=== PATIENT | female | born 2000 | race Caucasian/White ===

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

== ENCOUNTER 2020-11-21 21:09 | Emergency (ER) | payer SELFPAY ==
[2020-11-21 21:20] VITALS: TEMP 98.5; BMI 25.1
[2020-11-21 21:51] LABS: EPI CELLS >36 /uL (0-25.1); HYALINE CASTS 8 /uL (0-3.1); PH,URINE 5.5 (5.0-8.0); URINE APPEARANCE CLOUDY; URINE BACTERIA 1395 /uL (0-1359); URINE BILIRUBIN NEGATIVE (NEGATIVE); URINE COLOR YELLOW; URINE GLUCOSE (UA) NEGATIVE (NEGATIVE); URINE KETONE NEGATIVE (NEGATIVE); URINE LEUK ESTERASE 2+ (NEGATIVE); URINE NITRITE NEGATIVE (NEGATIVE); URINE PROTEIN TRACE (NEGATIVE); URINE RBC 26 /uL (0-23.9); URINE WBC 429 /uL (0-25.8)
[2020-11-21] MEDS ORDERED: ACETAMINOPHEN 500 MG TABLET (FP) PO ONE (22:03)
[2020-11-21] MEDS ORDERED: ACETAMINOPHEN 500 MG TABLET (FP) ONE (22:12)
[2020-11-21 22:27] LABS: BASO % 0.6 % (0-2.0); EOS % 3.1 % (0-4.5); HEMATOCRIT 27.4 % (32.4-45.2); HEMOGLOBIN 8.4 GM/dL (10.7-15.3); LYMPH % 17.8 % (8-40); MCH 20.4 pg (25.7-33.7); MCHC 30.6 g/dl (32.0-36.0); MEAN CELL VOLUME 66.6 fl (80-96); MEAN PLT VOLUME 7.7 fl (7.5-11.1); MONO % 7.9 % (3.8-10.2); NEUT % 70.6 % (42.8-82.8); PLATELET COUNT 340 K/MM3 (134-434); RBC 4.11 M/mm3 (3.60-5.2); RDW 18.6 % (11.6-15.6); WHITE BLOOD COUNT 12.4 K/mm3 (4.0-10.0)
[2020-11-21 22:54] LABS: CALCIUM 9.1 mg/dL (8.5-10.1)
[2020-11-21 22:55] LABS: BLOOD UREA NITROGEN 13.1 mg/dL (7-18)
[2020-11-21 22:59] LABS: CREATININE 0.8 mg/dL (0.55-1.3)
[2020-11-21 23:09] LABS: ANISOCYTOSIS 3+; MACROCYTOSIS 0; PLATELET ESTIMATE NORMAL
[2020-11-21 23:14] VITALS: BP 117/71; PULSE 80
== END 2020-11-21 23:15 | disposition home or self-care (01) ==
LOC: JERFT 21:09 → JER 21:09 → JERFT 23:15
DX: O26.851 Spotting complicating pregnancy, first trimester (principal); O23.41 Unspecified infection of urinary tract in pregnancy, first trimester; Z3A.08 8 weeks gestation of pregnancy
CPT/HCPCS: 36415; 76801-TC; 80048; 81003; 84702; 85025; 86850; 86900; 86901; 87086; 99285-25

== ENCOUNTER 2021-07-08 16:45 | Inpatient (IN) | payer MEDICARE, OTHER ==
[2021-07-08 17:56] VITALS: BMI 34.1
[2021-07-08 19:19] LABS: BASO % 0.3 % (0-2.0); EOS % 1.1 % (0-4.5); HEMATOCRIT 39.5 % (32.4-45.2); HEMOGLOBIN 13.5 GM/dL (10.7-15.3); LYMPH % 14.5 % (8-40); MCH 31.9 pg (25.7-33.7); MCHC 34.3 g/dl (32.0-36.0); MEAN CELL VOLUME 93.1 fl (80-96); MEAN PLT VOLUME 9.3 fl (7.5-11.1); MONO % 7.9 % (3.8-10.2); NEUT % 76.2 % (42.8-82.8); PLATELET COUNT 203 10^3/uL (134-434); RBC 4.24 M/mm3 (3.60-5.2); RDW 14.4 % (11.6-15.6); WHITE BLOOD COUNT 9.3 K/mm3 (4.0-10.0)
[2021-07-08 19:25] LABS: INR 0.94 (0.83-1.09)
[2021-07-08 19:28] LABS: ACTIVATED PTT 29.7 SECONDS (25.2-36.5)
[2021-07-08 19:36] LABS: BLOOD UREA NITROGEN 4.2 mg/dL (7-18); CALCIUM 8.6 mg/dL (8.5-10.1)
[2021-07-08 19:39] LABS: CREATININE 0.5 mg/dL (0.55-1.3)
[2021-07-08] MEDS ORDERED: DINOPROSTONE 10 MG VAGINAL SUPPOSITORY VG ONE (20:44)
[2021-07-09] MEDS ORDERED: DEXTROSE 5%-LACTATED RINGERS 1,000 ML IV SCH (07:00)
[2021-07-09] MEDS ORDERED: PROMETHAZINE HCL 25 MG/1 ML VIAL ONE (10:07)
[2021-07-09] MEDS ORDERED: BUTORPHANOL TARTRATE 2 MG/ML VIAL ONE ×2 (10:07→12:32)
[2021-07-09] MEDS ORDERED: BUTORPHANOL TARTRATE 1 MG/ML VIAL IVPB ONE ×2 (10:56→12:36)
[2021-07-09] MEDS ORDERED: PROMETHAZINE HCL 25 MG/1 ML VIAL IVPB ONE (10:57)
[2021-07-09] MEDS ORDERED: OXYTOCIN 30 UNITS in 0.9% NS 30 UNIT/500 ML INFUS.BAG IVPB ONE (10:58)
[2021-07-09] MEDS ORDERED: OXYTOCIN 30 UNITS in 0.9% NS 30 UNIT/500 ML INFUS.BAG IVPB SCH (11:00)
[2021-07-09] MEDS ORDERED: BUTORPHANOL TARTRATE 2 MG/ML VIAL IVPB ONE (12:45)
[2021-07-09] MEDS ORDERED: SODIUM CHLORIDE 1,000 ML IV STA (13:35)
[2021-07-09] MEDS ORDERED: PCA PUMP NR ONE ×2 (13:52→17:31)
[2021-07-09] MEDS ORDERED: FENTANYL/BUPIVACAINE/NS/PF - PCEA - 50 ML DISP.SYRIN EP ONE (13:53)
[2021-07-09] MEDS ORDERED: BUPIVACAINE HCL/PF 0.25% (2.5MG/ML) 10 ML VIAL ONE (14:04)
[2021-07-09] MEDS ORDERED: NALOXONE HCL 0.4 MG/ML VIAL IVPUSH PRN (14:52)
[2021-07-09] MEDS ORDERED: FENTANYL/BUPIVACAINE/NS/PF - PCEA - 50 ML DISP.SYRIN EP SCH (15:00)
[2021-07-09 16:44] LABS: CORD BASE EXCESS -5.8 mmol/L (0-2); CORD HCO3 21.5 mmHg (20-29); CORD PCO2 47.9 mmHg (30-78); CORD pH 7.27 (7.14-7.44)
[2021-07-09 16:47] LABS: CORD BASE EXCESS -7.7 mmol/L (0-2); CORD HCO3 22.8 mmHg (20-29); CORD PCO2 66.2 mmHg (30-78); CORD pH 7.155 (7.14-7.44)
[2021-07-09] MEDS ORDERED: ACETAMINOPHEN 325 MG TABLET (FP) PO PRN (17:13)
[2021-07-09] MEDS ORDERED: BENZOCAINE 20% 57 GM BOTTLE TP PRN (17:13)
[2021-07-09] MEDS ORDERED: BENZOCAINE 28 GM HEMORRHOIDAL OINTMENT TP PRN (17:13)
[2021-07-09] MEDS ORDERED: WITCH HAZEL 50% (TUCKS) 40 PAD/JAR PAD TP PRN (17:13)
[2021-07-09] MEDS ORDERED: OXYTOCIN 20 UNITS in 0.9% NS 20 UNIT/1,000 ML INFUS.BAG IV SCH (17:15)
[2021-07-10 08:11] LABS: BASO % 0.1 % (0-2.0); EOS % 0.1 % (0-4.5); HEMATOCRIT 32.4 % (32.4-45.2); HEMOGLOBIN 11.1 GM/dL (10.7-15.3); LYMPH % 11.7 % (8-40); MCH 31.5 pg (25.7-33.7); MCHC 34.2 g/dl (32.0-36.0); MEAN CELL VOLUME 91.9 fl (80-96); MEAN PLT VOLUME 8.7 fl (7.5-11.1); MONO % 7.3 % (3.8-10.2); NEUT % 80.8 % (42.8-82.8); PLATELET COUNT 168 10^3/uL (134-434); RBC 3.52 M/mm3 (3.60-5.2); RDW 14.5 % (11.6-15.6); WHITE BLOOD COUNT 15.7 K/mm3 (4.0-10.0)
[2021-07-10] MEDS: PRENATAL VITAMINS W/ FOLIC ACID TABLET (FP) PO SCH (09:36)
[2021-07-10] MEDS ORDERED: DIPHTH,PERTUSS(ACELL),TET 0.5 ML DISP.SYRIN IM ONE (10:00)
[2021-07-10] MEDS: IBUPROFEN 600 MG TABLET (FP) PO PRN ×2 (11:10→23:00)
[2021-07-10 21:43] VITALS: TEMP 97.6
[2021-07-11] MEDS: PRENATAL VITAMINS W/ FOLIC ACID TABLET (FP) PO SCH (09:52)
[2021-07-11 10:44] VITALS: BP 119/73; PULSE 83
== END 2021-07-11 13:30 | disposition home or self-care (01) | DRG 560 ==
LOC: JLDR 16:45 → J3W 07-09 18:00
PROVIDERS: ADMIT Obstetrics & Gynecology Maternal & Fetal Medicine; ATTEND Obstetrics & Gynecology Maternal & Fetal Medicine
PROC: 10E0XZZ Delivery of Products of Conception, External Approach (ICD-10-PCS; principal; 2021-07-09)
PROC: 0KQM0ZZ Repair Perineum Muscle, Open Approach (ICD-10-PCS; 2021-07-09)
PROC: 0W8NXZZ Division of Female Perineum, External Approach (ICD-10-PCS; 2021-07-09)
PROC: 3E0P7VZ Introduction of Hormone into Female Reproductive, Via Natural or Artificial Opening (ICD-10-PCS; 2021-07-09)
DX: O48.0 Post-term pregnancy (principal); Z3A.40 40 weeks gestation of pregnancy; O36.63X0 Maternal care for excessive fetal growth, third trimester, not applicable or unspecified; O70.1 Second degree perineal laceration during delivery; Z37.0 Single live birth
CPT/HCPCS: 36415; 36600; 59409; 80048; 82803; 85025; 85610; 85730; 86780; 86850; 86900; 86901; 88307-TC; 90715; C9803; U0003; U0005